=== PATIENT | female | born 1930 | race Caucasian/White ===

== ENCOUNTER 2016-10-27 16:40 | Outpatient (CLI) | payer MEDICARE, OTHER ==
[2016-07-04 07:51] VITALS: BP 172/70
== END 2016-10-27 16:42 ==
LOC: LAB 16:40
PROVIDERS: ATTEND Family Medicine
DX: M79.1 Myalgia (principal)
CPT/HCPCS: 85651

== ENCOUNTER 2016-10-31 20:08 | Emergency (ER) | payer MEDICARE, OTHER ==
[2016-10-31] MEDS ORDERED: LORazepam 1 MG TABLET PO ONE (21:19)
--- NOTE | 2016-10-31 21:22 | ED Physician Documentation ---
General Adult - HISTORIAN Historian: patient, spouse - HPI Stated Complaint: Restless Legs Chief Complaint: General Adult Additional Information: Legs and arms hurt for a few hours and now back hurts. Took two tylenol at 1630 and oxycodone at 1830. Has not taken ativan since breakfast. Has these episodes frequently; last previous was yesterday. - ROS CONST: sweating (hot and cold feelings sometimes accomay episodes of pain). denies: fever - PAST HX Past History: asthma, A-Fib, other (chronic bronchitis, pneumonia, meningioma, hypokalemia, lumbar spinal stenosis, restless leg syndrome. ) Allergies/Adverse Reactions: Allergies Allergy/AdvReac Type Severity Reaction Status Date / Time atorvastatin calcium Allergy Intermediate Hives Verified 10/31/16 20:28 [From Lipitor] celecoxib Allergy Unknown Verified 10/31/16 20:28 ciprofloxacin [From Cipro] Allergy Unknown Verified 10/31/16 20:28 ciprofloxacin HCl Allergy Unknown Verified 10/31/16 20:28 [From Cipro] ezetimibe AdvReac Intermediate Joint Pain Verified 10/31/16 20:28 ofloxacin AdvReac Intermediate Nausea/Vomi Verified 10/31/16 20:28 ting ropinirole AdvReac Intermediate Dizziness Verified 10/31/16 20:28 simvastatin AdvReac Intermediate Joint Pain Verified 10/31/16 20:28 iodine AdvReac Unknown No Reaction Verified 10/31/16 20:28 piroxicam AdvReac Unknown Weakness Verified 10/31/16 20:28 rivaroxaban AdvReac Unknown Weakness Verified 10/31/16 20:28 Home Medications: Ambulatory Orders Medication Instructions Recorded Apixaban [Eliquis] 2.5 mg PO BID 10/31/16 Bethanechol Chloride [Urecholine] 25 mg PO BID 10/31/16 Digoxin [Lanoxin] 0.125 mcg PO DAILY 10/31/16 Diltiazem HCl [Cardizem Cd] 240 mg PO DAILY 10/31/16 Montelukast Sodium [Singulair] 10 mg PO HS 10/31/16 Oxycodone HCl [Roxicodone] 5 mg PO BID 10/31/16 PARoxetine HCL [Paxil] 10 mg PO QD 10/31/16 Potassium Chloride [Klor-Con 10 meq PO BID 10/31/16 Sprinkle] Ropinirole HCl [Requip] 0.5 mg PO TID 10/31/16 - SOCIAL HX Smoking History: non-smoker Alcohol Use: none Drug Use: none - FAMILY HX Family History: No - VITAL SIGNS Vital Signs: Vital Signs Temp Pulse Resp BP Pulse Ox 98.6 F 72 18 147/56 94 10/31/16 20:10 10/31/16 20:10 10/31/16 20:10 10/31/16 20:10 10/31/16 20:10 - REVIEWED ASSESSMENTS Nursing Assessment Reviewed: Yes Vitals Reviewed: Yes ED Results Lab/Radiology - Orders Orders: ED Orders Category Date Time Status LORazepam [Ativan] Med 10/31/16 21:19 Once 0.5 mg PO NOW ONE General Adult Physical Exam - PHYSICAL EXAM GENERAL APPEARANCE: mild distress (anxious.) EENT: eye inspection normal, ENT inspection normal, pharynx normal NECK: normal inspection, supple RESPIRATORY: no resp distress, breath sounds normal CVS: heart sounds normal, irregularly irregular rhy RECTAL: deferred BACK: other (thoracic kyphosis, movements w/o pain) SKIN: warm/dry, normal color EXTREMITIES: no evidence of injury NEURO: CN's nml as tested, motor nml, sensation nml, other (reflexes 2+ throughout. No asymmetry) Discharge Clincal Impression: Chronic pain disorder Additional Instructions: Home to bed. If your legs and arms get worse tonight, you can take another 0.5 mg of Ativan. Home Medications: Ambulatory Orders Apixaban [Eliquis] 2.5 mg PO BID 10/31/16 Bethanechol Chloride [Urecholine] 25 mg PO BID 10/31/16 Digoxin [Lanoxin] 0.125 mcg PO DAILY 10/31/16 Diltiazem HCl [Cardizem Cd] 240 mg PO DAILY 10/31/16 Montelukast Sodium [Singulair] 10 mg PO HS 10/31/16 Oxycodone HCl [Roxicodone] 5 mg PO BID 10/31/16 PARoxetine HCL [Paxil] 10 mg PO QD 10/31/16 Potassium Chloride [Klor-Con Sprinkle] 10 meq PO BID 10/31/16 Ropinirole HCl [Requip] 0.5 mg PO TID 10/31/16 Condition: Fair Disposition: 01 HOME, SELF-CARE Decision to Admit: NO Decision Time: 21:43
[2016-10-31 21:48] VITALS: BP 146/76
== END 2016-10-31 21:46 | disposition home or self-care (01) ==
LOC: ED 20:08
DX: G89.4 Chronic pain syndrome (principal)
CPT/HCPCS: 99282; 99283

== ENCOUNTER 2016-12-18 17:12 | Outpatient (CLI) | payer MEDICARE, OTHER ==
--- NOTE | 2016-12-19 06:41 | Diagnostic Imaging Report ---
Report Submission Date: Dec 18, 2016 6:55:26 PM CDT Patient ~ Study Name: LEEANNA BIRD ~ Date: Dec 18, 2016 6:06:20 PM CDT ~ Modality Type: CR Gender: F ~ Description: CHEST : 34 ~ Institution: [facility] Physician: VIRIDIANA SALGUERO ~ ~ ~ ~ Chest -two views CLINICAL HISTORY: ~ Cough. ~Shortness of breath. FINDINGS: ~ Examination of the chest in PA and lateral views with no prior film for comparison demonstrates chronic appearing interstitial changes worse on the right. There is bilateral apical pleural thickening. ~Implanted port overlies the left hemithorax. ~Cardiac silhouette is prominent and the aorta is atherosclerotic. ~Mild spondylitic changes are seen in the thoracic vertebrae. IMPRESSION: ~ Chronic appearing interstitial changes. ~ Bilateral apical pleural thickening. ~ Implanted port. ~ Aortic atherosclerosis and mild cardiomegaly. ~ Electronically signed on Dec 18, 2016 6:55:26 PM CDT by: Robin MCNEAL
== END 2016-12-18 17:17 | disposition home or self-care (01) ==
LOC: RAD 17:12
PROVIDERS: ATTEND Family Medicine
DX: J47.9 Bronchiectasis, uncomplicated (principal)
CPT/HCPCS: 71020

== ENCOUNTER 2017-01-05 09:51 | Outpatient (CLI) | payer MEDICARE, OTHER ==
--- NOTE | 2017-01-05 16:33 | CONSULTATION REPORT ---
REFERRING PHYSICIAN: Dr. Dhruv Sun CONSULTING PHYSICIAN: Dr. Carol Mejia REASON FOR CONSULT: Bronchiectasis. PROBLEM LIST: 1. Chronic hypoxic hypercapnic respiratory failure requiring oxygen at night. 2. Severe end-stage bilateral bronchiectasis with recurrent exacerbation. 3. Failure to thrive with significant weight loss over the last few months. 4. Severe chronic back pain. 5. Chronic interstitial changes in both lungs with significant apical pleural thickness. HISTORY OF PRESENT ILLNESS: Renetta is a new patient to my office here today, but over the last 10 years, I did take care of her multiple times at [facility] where she had severe bronchiectasis with a recurrent exacerbation. Unfortunately, she had significant failure to thrive over the last few months with significant weight loss and having increased episodes of shortness of breath, daytime fatigue, and a productive cough. With all antibiotic treatment and including IV antibiotics, she did not have significant improvement in her symptoms and even we discussed comfort care and hospice with her multiple times over the last few years. She continued having significant shortness of breath. She is having more stress at home because of her , who is her main caregiver, did injure his back and is unable to function at home to cook or to clean the house. She gets someone to help once a week but she has been stressed out. Over the last 2 weeks, she was seen by Dr. Sun where she had an exacerbation in her bronchiectasis and did receive a course of Ceftin and a steroid and she is finishing that right now and she feels some improvement. Otherwise, her weight had been fluctuating, it is down to 112 pounds. She uses oxygen at night and I believe that she is still able to manage it at home by herself. PAST MEDICAL HISTORY: 1. Severe asthmatic bronchitis with bronchiectasis. 2. Previous pulmonary embolism. 3. Multiple issues with her heart including coronary artery disease and multiple hospitalizations. MEDICATIONS: Her medications were reviewed in the chart and she is still taking Eliquis right now and on nebulizer treatments. ALLERGIES: 1. Lipitor. 2. Celebrex. 3. Ciprofloxacin. 4. Ofloxacin. 5. Ropinirole. 6. Simvastatin. 7. Iodine. 8. Rivaroxaban. SOCIAL HISTORY: She lives at home with her . She does not smoke. She does not drink. She is retired. She believes that her present state of health is very poor. FAMILY HISTORY: Her sister does have bronchiectasis which is also a severe disease. REVIEW OF SYSTEMS: Positive for daytime sleepiness and fatigue. She does have episodes of fever, chills, and sweat with bronchiectasis flare up. She has had weight loss over the last 2 years. She does get itchiness in her ears and sore throat with some increasing shortness of breath on activity. She is having also lower extremity edema. She does have a productive cough with greenish to yellowish sputum. She does have episodes of wheezing and shortness of breath but denies any pleurisy and no coughing up of blood. She does have increased urinary frequency but no hematuria. She does have muscle weakness and joint pain. A 12 -point review of systems was done and positive only for that listed above in the history of present illness. PHYSICAL EXAMINATION: Vital Signs: Current weight: 112. T: 97, R: 20, heart rate 85, oxygen saturation is 93%, BP: 159/79. General: She is an alert and awake chronically ill-appearing lady. She uses 2 L of oxygen all the time. She is pale. Neck: Her trachea is midline. Lungs: Significant crackles bilaterally with a prolonged expiratory phase. Heart: Irregularly irregular. Abdomen: Soft and no tenderness. Neurologic Exam: Grossly intact. DIAGNOSTIC STUDIES: I did review some of her old records through [facility] system where she had severe bilateral bronchiectasis with a previous positive culture for Pseudomonas. ASSESSMENT: 1. Chronic hypoxic hypercapnic respiratory failure requiring oxygen at night. 2. Severe end-stage bilateral bronchiectasis with recurrent exacerbation. 3. Failure to thrive with significant weight loss over the last few months. 4. Severe chronic back pain. 5. Chronic interstitial changes in both lungs with significant apical pleural thickness. PLAN: At this time, it appears that she had a small flare up with bronchitis and I am going to recommend at this point a Z-Sriram and prednisone, which likely she is going to need multiple times during the year. Azithromycin or Ceftin will be the best option for her. Again, unfortunately, Renetta's condition is end stage and her prognosis is very poor; and I do recommend considering her to be in an assisted living facility or a [facility], especially with her 's condition at this time. I will follow up with Renetta in 2 months with a repeat x-ray; otherwise, continue the current nebulizer and other medications. cc: Dr. Dhruv MCNEAL
== END 2017-01-05 09:52 ==
LOC: PULMONARY 09:51
PROVIDERS: ATTEND Internal Medicine Critical Care Medicine
DX: J96.12 Chronic respiratory failure with hypercapnia (principal); J44.9 Chronic obstructive pulmonary disease, unspecified; M54.9 Dorsalgia, unspecified
CPT/HCPCS: 99203; G0463

== ENCOUNTER 2017-01-12 16:01 | Outpatient (CLI) | payer MEDICARE, OTHER | END 2017-01-12 16:02 | LOC: LABRHC 16:01 | PROVIDERS: ATTEND Family Medicine | DX: N39.0 Urinary tract infection, site not specified (principal) | CPT/HCPCS: 87086; 87186 ==

== ENCOUNTER 2017-02-05 15:49 | Outpatient (CLI) | payer MEDICARE, OTHER ==
[2017-02-05 16:05] LABS: MEAN CORPUSCULAR VOLUME 93.5 fl (80.0-100.0)
[2017-02-05 16:17] LABS: EOSINOPHILS % 1 % (0-7); SEGMENTED NEUTROPHILS % 83 % (39-79)
[2017-02-05 16:18] LABS: HYPOCHROMASIA 1+ (NEGATIVE); TOXIC GRANULATION PRESENT
[2017-02-05 16:32] LABS: eGFR (African) > 60; eGFR (Non-African) > 60
--- NOTE | 2017-02-05 17:19 | Diagnostic Imaging Report ---
[facility] [address] [facility].[address] [address] Report Submission Date: February 05, 2017 5:17:09 PM CDT Patient Study Name: LEEANNA BIRD Date: February 05, 2017 4:03:33 PM CDT Modality Type: CR Gender: F Description: CHEST : 34 Institution: [facility] Physician: VERONICA MCBRIDE 2 views the chest Clinical history: Cough and short of breath Findings: Left chest port is noted. Heart size is mildly enlarged. The right lung interstitial and alveolar infiltrates. No pleural effusion. No pneumothorax. The right lung infiltrates in progress of prior study. Impression: Increase in right lung infiltrates Electronically signed on February 05, 2017 5:17:09 PM CDT by: Deangelo MCNEAL
== END 2017-02-05 15:50 ==
LOC: RAD 15:49
PROVIDERS: ATTEND Physician Assistant
DX: R06.02 Shortness of breath (principal)
CPT/HCPCS: 36415; 71020; 80053; 85025

== ENCOUNTER 2017-03-30 10:03 | Outpatient (CLI) | payer MEDICARE, OTHER | END 2017-03-30 10:04 | LOC: LAB 10:03 | PROVIDERS: ATTEND Internal Medicine Pulmonary Disease | DX: R76.11 Nonspecific reaction to tuberculin skin test without active tuberculosis (principal) | CPT/HCPCS: 36415; 86480 ==

== ENCOUNTER 2017-04-13 09:29 | Outpatient (CLI) | payer MEDICARE, OTHER ==
[2017-04-13 09:54] LABS: BASOPHILS % 0.7 (0.0-1.5); MEAN CORPUSCULAR HEMOGLOBIN 28.3 pg (28.0-34.0); MEAN CORPUSCULAR VOLUME 88.8 fl (80.0-100.0); MONOCYTES % 4.4 % (0.0-11.0); NEUTROPHILS # 7.1 # k/uL (1.4-7.7)
[2017-04-13 10:20] LABS: eGFR (African) > 60; eGFR (Non-African) 38
--- NOTE | 2017-04-13 23:53 | Diagnostic Imaging Report ---
VIRIDIANA SALGUERO~ [facility] [address] [facility].[address] [address] ~ ~ ~ ~ Report Submission Date: Apr 13, 2017 12:56:10 PM CDT Patient ~ Study Name: LEEANNA BIRD ~ Date: Apr 13, 2017 9:43:01 AM CDT ~ Modality Type: CR Gender: F ~ Description: CHEST : 34 ~ Institution: [facility] Physician: VIRIDIANA SAGLUERO ~ ~ ~ ~ Examination: PA and lateral chest. History: Evaluate lung wolff. Comparison exam: 05 Feb 2017 Findings: PA lateral chest demonstrates a prominent cardiac silhouette: unchanged. Prominence of the hilar regions - right greater than left: also stable to prior study. Diffuse interstitial parenchymal changes: stable. Stable blunting of the left costophrenic margin. Interval removal of the left sided guanako cath. Osseous structures appropriate for age Impression: Stable parenchymal and hilar changes back to January of 2017 interval removal of the left-sided guanako cath. ~ Electronically signed on Apr 13, 2017 12:56:10 PM CDT by: Johnathon MCNEAL
== END 2017-04-13 09:30 ==
LOC: RAD 09:29
PROVIDERS: ATTEND Family Medicine
DX: E03.9 Hypothyroidism, unspecified (principal); E87.6 Hypokalemia; I50.9 Heart failure, unspecified; I10 Essential (primary) hypertension; J47.9 Bronchiectasis, uncomplicated
CPT/HCPCS: 36415; 71020; 80053; 84443; 85025

== ENCOUNTER 2017-04-19 15:49 | Emergency (ER) | payer MEDICARE, OTHER ==
[2017-04-19 16:28] VITALS: BP 155/96
--- NOTE | 2017-04-19 16:36 | ED Physician Documentation ---
General Adult - HISTORIAN Historian: patient, spouse - HPI Stated Complaint: pain all over Chief Complaint: General Adult Additional Information: Renetta has been having pain all over her entire body today. The pain goes from her toes to her neck. She was recently diagnosed with pneumonia and started on Levaquin 2 days ago. She has chronic pain and takes Oxycodone twice daily and uses Fentanyl patches. She has been miserable all day because of her pain. Her has to carefully control the oxycodone or he thinks she would take all of it. Onset: hours Timing: still present Severity: severe - ROS CONST: recent illness, weakness EYES/ENT: denies: sore throat, nasal drainage CVS/RESP: shortness of breath. denies: cough GI/: denies: vomiting, nausea MS/SKIN/LYMPH: calf pain, neck pain, joint pain, leg pain, back pain. denies: rash NEURO/PSYCH: difficulty walking. denies: fainting, difficulty with speech - PAST HX Past History: A-Fib, other (h/o DVT and PE, Cdif, meningioma, Lumbar spinal stenosis, RLS) Surgeries/Procedures: hysterectomy, other (BSO, cataracts, C spine fusion, Wily diony placement, T&A) Allergies/Adverse Reactions: Allergies Allergy/AdvReac Type Severity Reaction Status Date / Time atorvastatin calcium Allergy Intermediate Hives Verified 04/19/17 15:58 [From Lipitor] celecoxib Allergy Unknown Verified 04/19/17 15:58 ciprofloxacin [From Cipro] Allergy Unknown Verified 04/19/17 15:58 ciprofloxacin HCl Allergy Unknown Verified 04/19/17 15:58 [From Cipro] ezetimibe AdvReac Intermediate Joint Pain Verified 04/19/17 15:58 ofloxacin AdvReac Intermediate Nausea/Vomi Verified 04/19/17 15:58 ting ropinirole AdvReac Intermediate Dizziness Verified 04/19/17 15:58 simvastatin AdvReac Intermediate Joint Pain Verified 04/19/17 15:58 iodine AdvReac Unknown No Reaction Verified 04/19/17 15:58 piroxicam AdvReac Unknown Weakness Verified 04/19/17 15:58 rivaroxaban AdvReac Unknown Weakness Verified 04/19/17 15:58 Home Medications: Ambulatory Orders Medication Instructions Recorded Apixaban [Eliquis] 2.5 mg PO BID 10/31/16 Bethanechol Chloride [Urecholine] 25 mg PO BID 10/31/16 Digoxin [Lanoxin] 0.125 mcg PO DAILY 10/31/16 Diltiazem HCl [Cardizem Cd] 240 mg PO DAILY 10/31/16 Montelukast Sodium [Singulair] 10 mg PO HS 10/31/16 PARoxetine HCL [Paxil] 10 mg PO QD 10/31/16 Potassium Chloride [Klor-Con 10 meq PO BID 10/31/16 Sprinkle] Ropinirole HCl [Requip] 0.5 mg PO TID 10/31/16 - SOCIAL HX Smoking History: non-smoker - FAMILY HX Family History: No (non-contributory) - VITAL SIGNS Vital Signs: Vital Signs Temp Pulse Resp BP Pulse Ox 98.2 F 96 H 155/96 96 04/19/17 16:00 04/19/17 16:25 04/19/17 16:25 04/19/17 16:25 - REVIEWED ASSESSMENTS Nursing Assessment Reviewed: Yes Vitals Reviewed: Yes General Adult Physical Exam - PHYSICAL EXAM GENERAL APPEARANCE: no distress EENT: eye inspection normal, no nystagmus RESPIRATORY: chest non-tender, wheezes CVS: reg rate & rhythm, no JVD ABDOMEN: soft, no distension SKIN: warm/dry, normal color. No: diaphoresis EXTREMITIES: edema (chronic ankle swelling, no pitting), other (no redness or tenderness of legs/calves) NEURO: other (speech is clear, affect is argumentative) Discharge Clincal Impression: Chronic pain Referrals: Dhruv Sun MD [Primary Care Provider] - 2 Days Additional Instructions: Renetta requested an injection of pain medicine today. Due to her chronic use of Oxycodone and Fentanyl no pain medicine was given today. She was instructed to f/u with her PCP, Dr. Sun. Home Medications: Ambulatory Orders Apixaban [Eliquis] 2.5 mg PO BID 10/31/16 Bethanechol Chloride [Urecholine] 25 mg PO BID 10/31/16 Digoxin [Lanoxin] 0.125 mcg PO DAILY 10/31/16 Diltiazem HCl [Cardizem Cd] 240 mg PO DAILY 10/31/16 Montelukast Sodium [Singulair] 10 mg PO HS 10/31/16 PARoxetine HCL [Paxil] 10 mg PO QD 10/31/16 Potassium Chloride [Klor-Con Sprinkle] 10 meq PO BID 10/31/16 Ropinirole HCl [Requip] 0.5 mg PO TID 10/31/16 Condition: Stable Disposition: HOME, SELF-CARE Decision to Admit: NO Decision Time: 18:20
== END 2017-04-19 16:25 | disposition home or self-care (01) ==
LOC: ED 15:49
DX: G89.29 Other chronic pain (principal)
CPT/HCPCS: 99283

== ENCOUNTER 2017-04-28 19:29 | Outpatient (CLI) | payer MEDICARE, OTHER ==
[~2017-04-28 19:29] MED LIST: CEFEPIME HCL 1 GM in 0.9 % SODIUM CHLORIDE 50 ML IV SCH; CEFEPIME HCL/D5W 1 GM/50 ML BAG IV ONE; HEPARIN SODIUM,PORCINE 30 UNITS INJ IV ONE; SALINE FLUSH 10 ML DISP.SYRIN IVF ONE
== END 2017-04-28 19:30 ==
LOC: INF 19:29
PROVIDERS: ATTEND Nurse Practitioner Family
DX: J47.1 Bronchiectasis with (acute) exacerbation (principal)
CPT/HCPCS: 96365

== ENCOUNTER 2017-04-29 19:03 | Outpatient (CLI) | payer MEDICARE, OTHER | END 2017-04-29 19:10 | LOC: INF 19:03 | PROVIDERS: ATTEND Nurse Practitioner Family | DX: J47.1 Bronchiectasis with (acute) exacerbation (principal) | CPT/HCPCS: 96365 ==

== ENCOUNTER 2017-04-30 07:40 | Outpatient (CLI) | payer MEDICARE, OTHER ==
[2017-04-30] MEDS ORDERED: SALINE FLUSH 10 ML DISP.SYRIN IVF ONE (08:00)
[2017-04-30] MEDS ORDERED: HEPARIN SODIUM,PORCINE 30 UNITS INJ IV ONE (08:00)
[2017-04-30] MEDS ORDERED: CEFEPIME HCL/D5W 1 GM/50 ML BAG IV ONE ×2 (08:00)
== END 2017-04-30 07:43 ==
LOC: INF 07:40
PROVIDERS: ATTEND Nurse Practitioner Family
DX: J47.1 Bronchiectasis with (acute) exacerbation (principal)
CPT/HCPCS: 96365; J0692

== ENCOUNTER 2017-05-01 07:38 | Outpatient (CLI) | payer MEDICARE, OTHER ==
[2017-05-01] MEDS ORDERED: 0.9 % SODIUM CHLORIDE 100 ML IV.SOLN IV ONE (08:00)
[2017-05-01] MEDS ORDERED: CEFEPIME HCL/D5W 1 GM/50 ML BAG IV ONE ×2 (08:00)
[2017-05-01] MEDS ORDERED: HEPARIN SODIUM,PORCINE 30 UNITS INJ IV ONE (08:00)
[2017-05-01] MEDS ORDERED: SALINE FLUSH 10 ML DISP.SYRIN IVF ONE (08:00)
[2017-05-01] MEDS ORDERED: CEFTAZIDIME 1 GM VIAL ONE (08:00)
== END 2017-05-01 07:40 ==
LOC: INF 07:38
PROVIDERS: ATTEND Nurse Practitioner Family
DX: J47.1 Bronchiectasis with (acute) exacerbation (principal)
CPT/HCPCS: 96365; J0692

== ENCOUNTER 2017-05-02 07:37 | Outpatient (CLI) | payer MEDICARE, OTHER ==
[2017-05-02] MEDS ORDERED: CEFTAZIDIME 1 GM VIAL ONE (08:00)
[2017-05-02] MEDS ORDERED: 0.9 % SODIUM CHLORIDE 100 ML IV.SOLN IV ONE (08:00)
[2017-05-02] MEDS ORDERED: SALINE FLUSH 10 ML DISP.SYRIN IVF ONE (08:00)
[2017-05-02] MEDS ORDERED: HEPARIN SODIUM,PORCINE 30 UNITS INJ IV ONE (08:00)
== END 2017-05-02 07:40 ==
LOC: INF 07:37
PROVIDERS: ATTEND Nurse Practitioner Family
DX: J47.1 Bronchiectasis with (acute) exacerbation (principal)
CPT/HCPCS: 96365